=== PATIENT | male | born 1965 | race Caucasian/White ===

== ENCOUNTER 2020-06-29 10:59 | Emergency (ER) | payer MEDICARE, MEDICAID ==
[2020-06-29 19:36] LABS: SARS-CoV-2 MS2 Positive; SARS-CoV-2 N Gene Negative; SARS-CoV-2 S Gene Negative; SARS-CoV-2 by NAA Not Detected (NotDetected); SARS-CoV-2 orf1ab Negative
== END 2020-06-29 11:30 | disposition home or self-care (01) ==
LOC: BURERS 10:59
DX: R19.7 Diarrhea, unspecified (principal); I10 Essential (primary) hypertension; E78.5 Hyperlipidemia, unspecified; F41.9 Anxiety disorder, unspecified; Z20.828 Contact with and (suspected) exposure to other viral communicable diseases; Z86.73 Personal history of transient ischemic attack (TIA), and cerebral infarction without residual deficits
CPT/HCPCS: 99283; U0003; 87635